=== PATIENT | female | born 1955 | race Caucasian/White ===

== ENCOUNTER 2016-05-20 14:11 | Emergency (ER) | payer BC ==
--- NOTE | 2016-05-20 14:23 | PDOC ---
History of Present Illness - General Chief Complaint: Pain Stated Complaint: RT LOWER LEG PAIN Time Seen by Provider: 05/20/16 14:14 - History of Present Illness Initial Comments: 05/20/16 14:24 61-year-old female with a past medical history of hypertension, diabetes, and hyperlipidemia Patient states that in the early a.m. hours of Saturday, she got out of bed to use the restroom, and she felt a sudden pain in her right leg Since that time she's had some pain in her lower right calf, which is worse when she walks around She denies any fall or injury as the cause of the pain, and it came on spontaneously She had arthroscopic right knee surgery a year ago, but nothing more recent She is not on any estrogen supplementation at this time She denies any direct trauma to the area She denies any break in the skin She denies any fevers or chills She denies any chest pain or shortness of breath She denies any left leg pain She denies any other complaints at this time, and the remainder of the review of systems is negative Past History - Past Medical History Allergies/Adverse Reactions: Allergies Allergy/AdvReac Type Severity Reaction Status Date / Time No Known Allergies Allergy Verified 05/20/16 14:12 Home Medications: Ambulatory Orders Amlodipine Besylate [Norvasc -] 5 mg PO DAILY 05/20/16 Aspirin [ASA -] 81 mg PO DAILY 05/20/16 Glipizide [Glucotrol] 10 mg PO BID 05/20/16 Insulin Glargine,Hum.rec.anlog [Lantus (nf)] 40 units SQ HS 05/20/16 Metformin HCl 500 mg PO BID 05/20/16 Quinapril HCl [Accupril] 20 mg PO BID 05/20/16 Simvastatin [Zocor -] 10 mg PO DAILY 05/20/16 Sitagliptin Phosphate [Januvia] 100 mg PO DAILY 05/20/16 Review of Systems - Review of Systems Able to Perform ROS?: Yes Comments:: 05/20/16 14:29 Review of systems is as per history of present illness and otherwise negative *Physical Exam - Physical Exam Comments: 05/20/16 14:30 Physical exam GENERAL: The patient is awake, alert, and fully oriented, and in no apparent distress. HEAD: Normal with no signs of trauma. EYES: sclera anicteric, conjunctiva are normal. ENT: Moist mucous membranes. NECK: Normal range of motion, supple LUNGS: Breath sounds equal, clear to auscultation bilaterally. No wheezes, and no crackles. HEART: Regular rate and rhythm, normal S1 and S2 without murmur, rub or gallop. ABDOMEN: Soft, nontender, normoactive bowel sounds. No guarding, no rebound. No masses appreciated. EXTREMITIES: There is no edema bilaterally The toes are warm bilaterally with intact sensation and good capillary refill Dorsalis pedis pulses are palpable bilaterally There is some minimal swelling around the right ankle There is some mild lower right calf tenderness, without mid calf tenderness There is some mild tenderness in the popliteal fossa There is full range of motion of the right hip, right knee, and right ankle There is no break in the skin or evidence of cellulitis NEUROLOGICAL: Cranial nerves II through XII grossly intact. Normal speech, normal gait. PSYCH: Normal mood, normal affect. SKIN: Warm, Dry, normal turgor, no rashes or lesions noted. ED Treatment Course - RADIOLOGY Radiology Studies Ordered: Category Date Time Status DUPLEX VASCUL US-1 LEG [US] Stat Ultrasound 05/20/16 14:21 Ordered Medical Decision Making - Medical Decision Making 05/20/16 15:50 DVT ultrasound- Negative for DVT 05/20/16 15:52 muscle pain R leg *DC/Admit/Observation/Transfer Diagnosis at time of Disposition: Muscle strain of right lower extremity, Leg pain - Discharge Dispostion Disposition: HOME Condition at time of disposition: Good - Patient Instructions Additional Instructions: Rest, elevate, Tylenol or Motrin for discomfort Followup with your primary care physician in 24-48 hours Return immediately if you worsen in any way - Post Discharge Activity Work/School Note: Back to Work
[2016-05-20 14:37] VITALS: BP 147/81; PULSE 68; TEMP 98.4; BMI 37.5
== END 2016-05-20 16:14 | disposition home or self-care (01) ==
LOC: FER 14:11
DX: S86.911A Strain of unspecified muscle(s) and tendon(s) at lower leg level, right leg, initial encounter (principal); M79.604 Pain in right leg; X58.XXXA Exposure to other specified factors, initial encounter; Y93.9 Activity, unspecified; Y92.9 Unspecified place or not applicable; I10 Essential (primary) hypertension; E11.9 Type 2 diabetes mellitus without complications; E78.5 Hyperlipidemia, unspecified; Z79.82 Long term (current) use of aspirin; Z79.4 Long term (current) use of insulin; Z79.84 Long term (current) use of oral hypoglycemic drugs
CPT/HCPCS: 93971-TC; 99282-25

== ENCOUNTER → 2019-04-24 | Day surgery (SDC) | payer BC ==
--- NOTE | 2019-04-27 11:57 | OP ---
DATE OF OPERATION: 04/24/2019 PREOPERATIVE DIAGNOSIS: Left axillary adenopathy. POSTOPERATIVE DIAGNOSIS: Left axillary adenopathy. PROCEDURE: Left axillary ultrasound-guided core biopsy. ANESTHESIA: Local. ATTENDING SURGEON: Jeff Lopez MD ESTIMATED BLOOD LOSS: Minimal. COMPLICATIONS: None. PROCEDURE: Patient was made aware of the risks and benefits of the procedure and consented. She was placed in a supine position. Under sterile conditions with 2% lidocaine for local anesthesia, small angeles was made in the skin. Using a 13-gauge suction biopsy device via inferior approach, under ultrasound guidance, multiple cores were obtained and submitted to Pathology. Likewise, under ultrasound guidance, an open coil, HydroMark clip was placed into the biopsy region. Well tolerated by patient. Steri-Strips and a sterile bandage were applied. We will contact her with the results. JEFF LOPEZ M.D. [id number]
--- NOTE | 2019-04-29 13:58 | PATH ---
Surgical Pathology Report Patient Name: VIKKI JANSEN [facility]. Rec. #: [id number] /Age/Gender: 1955 (Age: 64) / F Account: [id number] Location: [facility] Taken: 04/24/2019 Received: 04/24/2019 Reported: 04/29/2019 Physicians: Jeff Lopez M.D. Specimen(s) Received LEFT AXILLARY LN CORE BIOPSY Clinical History Left axillary lymphadenopathy Final Diagnosis LEFT AXILLARY LYMPH NODE, CORE BIOPSY: LYMPH NODE TISSUE, NEGATIVE FOR METASTATIC CARCINOMA. Comment: Immunohistochemistry stain AE1/3 performed and interpreted at [facility] is negative. Positive and negative controls (internal if applicable) show appropriate results. This case is sent to [place], [place] for hematopathology consultation to rule out a lymphoproliferative disorder. A separate report to follow. Electronically Signed Manpreet Lindsay M.D. Addendum Reported: 05/15/2019 Addendum Diagnosis Hematopathology consult report from [facility]: LEFT AXILLARY LYMPH NODE, CORE NEEDLE BIOPSY: REACTIVE LYMPH NODE TISSUE. NO DIAGNOSTIC EVIDENCE OF LYMPHOPROLIFERATIVE DISORDER. Signed by: Elmer Reich D.O See emerge report ([id number]) for details. Molecular Pathology Report: B-Cell Clonality Analysis performed and interpreted at [facility] ([id number]) shows the following: Results: No clonal B-cell population detected. Interpretation: NEGATIVE for a clonal IgH gene rearrangement. See Emerge report for additional details. Manpreet Lindsay M.D. Gross Description Received in formalin labeled "left axillary lymph node," is a 2.0 x 1.7 x 0.3 cm aggregate of pierce-yellow, irregular to cylindrical portions of fibroadipose tissue. The formalin is filtered and the specimen is entirely submitted in one cassette. Time to formalin fixation: Less than one minute Total formalin fixation time: Approximately 6 hours. /04/24/2019 [facility]04/24/2019
== END | disposition home or self-care (01) ==
LOC: FRADUS-SUR 13:48
PROVIDERS: ATTEND Surgery Surgical Oncology
PROC: 07B53ZX Excision of Right Axillary Lymphatic, Percutaneous Approach, Diagnostic (ICD-10-PCS; principal; 2019-04-24)
PROC: BH40ZZZ Ultrasonography of Right Breast (ICD-10-PCS; 2019-04-24)
DX: R59.0 Localized enlarged lymph nodes (principal)
CPT/HCPCS: 19083; 87899; 88305-TC; 88342-TC; A4648